=== PATIENT | female | born 1980 | race Caucasian/White ===

== ENCOUNTER 2020-06-27 12:11 | Emergency (ER) | payer OTHER, SELFPAY ==
[2020-06-27 12:19] VITALS: BP 150/84; PULSE 84; RESP 16; TEMP 37.2; O2SAT 98; BMI 25.7
--- NOTE | 2020-06-27 12:32 | HMH.EDUTC ---
[facility] [place] Impression: Tooth [place], Jaw pain Disposition: Home, Self-Care Condition on Discharge: Good Instructions: DI for Tooth Abscess Additional Instructions: You have to follow up with a dentist. Take the prescribed ibuprofen for pain. Return if you begin to run a fever or have other worsening symptoms. Follow up with your regular doctor. GO TO THE ER FOR ANY WORSENING SYMPTOMS Prescriptions: Ibuprofen [Ibuprofen 800mg Tablet] 800 mg PO Q8HP PRN #30 tab PRN Reason: Moderate Pain Transmission Status: Received by [facility] Amoxicillin/Potassium Clav [Augmentin 875-125 Tablet] 1 tab PO Q12H 10 Days #20 tab Transmission Status: Received by [facility] Referrals: PCP,No [Primary Care Provider] - Time of Disposition: 13:03 Medical Decision Making - Medical Records Medical records reviewed: No: I reviewed the patient's medical records. - [place] Inquiry Pt receiving controlled substance: No Vital Signs: 06/27/20 12:19 06/27/20 12:34 06/27/20 13:10 Temperature 98.9 F 98 F 98.9 F Temperature Source Oral Oral Pulse Rate 74 Pulse Rate [Right] 84 74 Respiratory Rate 16 16 16 Blood Pressure 150/84 H Blood Pressure [Right Arm] 150/84 H 150/84 H Blood Pressure Mean [Right Arm] 106 106 Blood Pressure Source [Right Arm] Automatic Cuff Automatic Cuff Blood Pressure Position [Right Arm] Sitting Sitting 02 Sat by Pulse Oximetry 98 98 Oxygen Delivery Method Room Air Room Air Orders (Tests/Meds): ED MEDICATIONS Discontinued Medications Generic Name Dose Route Start Last Admin Trade Name Freq PRN Reason Stop Dose Admin Ceftriaxone Sodium 1 gm 06/27/20 13:02 06/27/20 13:03 Ceftriaxone 1gm Vial IM 06/27/20 13:03 1 gm ONCE ONE Administration Protocol Lidocaine HCl 0 ml 06/27/20 13:02 06/27/20 13:03 Lidocaine 1% 5ml Pf Vial IM 06/27/20 13:03 2.1 ml ONCE ONE [place] [facility] [place] - General Stated complaint: Dental abscess Time Seen by Provider: 06/27/20 12:20 Mode of Arrival: Ambulatory Source of Information: Patient Limitations: No Limitations Description of Symptoms (Recalled from Triage Doc. by RN): pt c/o facial swelling and advises she thinks she has a bad tooth - History of Present Illness Provider Complaint: She states that she has swelling and pain around a decayed tooth in her rigth upper jaw. She began having the swelling yesterday. The tooth has been bothering her for several months. - Related Data Previous Rx's Medication Instructions Recorded Amoxicillin/Potassium Clav 1 tab PO Q12H 10 Days #20 tab 06/27/20 [Augmentin 875-125 Tablet] Ibuprofen [Ibuprofen 800mg 800 mg PO Q8HP PRN #30 tab 06/27/20 Tablet] Allergies Allergy/AdvReac Type Severity Reaction Status Date / Time No Known Allergies Allergy Verified 06/27/20 13:00 [facility] History - Hepatitis A Screen Attestation statement:: This patient has been screened for Hepatitis A risk factors. I have reviewed the patient's past medical history: Yes ROS Obtained: Yes All systems reviewed & no additional complaints - Constitutional Constitutional: Denies chills, Denies fever(s), Denies poor appetite, Reports malaise - Eyes Eyes: Denies eye discharge - ENT Ears, Nose, Mouth, and Throat: Reports as per HPI - Cardiovascular Cardiovascular: Denies chest pain - Respiratory Respiratory: No chest congestion, No cough Physical Exam - General General appearance: alert, in no apparent distress - Head Head exam: atraumatic, normocephalic, normal inspection - Eye Eye exam: Present: normal appearance, PERRL, EOMI - ENT ENT exam: Present: mucous membranes moist, TM's normal bilaterally, normal external ear exam - Expanded ENT Exam Mouth exam: Absent: drooling, lip swelling, tongue swelling Teeth exam: Present: dental caries, gingival swelling Throat exam: Present: normal inspection
[2020-06-27 12:34] VITALS: BP 150/84; PULSE 74; RESP 16; TEMP 36.6; O2SAT 98
[2020-06-27 13:10] VITALS: BP 150/84; PULSE 74; RESP 16; TEMP 37.2; O2SAT 98
== END 2020-06-27 13:12 | disposition home or self-care (01) ==
PROVIDERS: Emergency Provider Nurse Practitioner Family
DX: K04.7 Periapical abscess without sinus (principal)
CPT/HCPCS: 96372; 99202